=== PATIENT | female | born 1975 | race Caucasian/White ===

== ENCOUNTER → 2023-11-06 10:51 | Outpatient (REF) | payer OTHER, SELFPAY | LOC: WDC 10:51 | PROVIDERS: ATTENDING PHYSICIAN Family Medicine | DX: Z12.31 Encounter for screening mammogram for malignant neoplasm of breast (principal) | CPT/HCPCS: 77063; 77067 ==

== ENCOUNTER → 2024-11-11 10:34 | Outpatient (REF) | payer OTHER, SELFPAY | LOC: WDC 10:34 | PROVIDERS: ATTENDING PHYSICIAN Obstetrics & Gynecology Gynecology; FAMILY PHYSICIAN Family Medicine | DX: Z12.31 Encounter for screening mammogram for malignant neoplasm of breast (principal) | CPT/HCPCS: 77063; 77067 ==

== ENCOUNTER → 2025-08-18 13:00 | Outpatient (REF) | payer OTHER, SELFPAY | LOC: RAD 13:00 | PROVIDERS: ATTENDING PHYSICIAN Internal Medicine Endocrinology, Diabetes & Metabolism; FAMILY PHYSICIAN Family Medicine | DX: E04.2 Nontoxic multinodular goiter (principal) | CPT/HCPCS: 76536 ==